=== PATIENT | female | born 1995 | race Caucasian/White ===

== ENCOUNTER 2018-11-05 08:27 | Day surgery (SDC) | payer BC ==
[~2018-11-05 08:27] MED LIST: Lactated Ringers 1,000 ML IV SCH; Sodium Chloride 0.9% 10 ML Syringe FLUSH PRN
[2018-11-05] MEDS ORDERED: Norflurane/HFc 245FA Medium Stream Spray 103.5 ML Can TOP PRN (08:31)
[2018-11-05] MEDS ORDERED: fentaNYL 100 MCG/2 ML SDV ONE ×2 (09:21→09:56)
[2018-11-05] MEDS ORDERED: Propofol 200 MG/20 ML SDV ONE ×3 (09:22→11:09)
[2018-11-05] MEDS ORDERED: Ondansetron 4 MG/2 ML SDV ONE (09:56)
--- NOTE | 2018-11-05 09:59 | PCM.HPR ---
H & P Addendum review - H & P Addendum Review Date of Original H & P: 11/02/18 Date Reviewed: 11/05/18 Time Reviewed: 09:50 Patient was Examined: No Changes
[2018-11-05] MEDS ORDERED: Methylene Blue 50 MG/10 ML Ampule INJECT ONE (10:15)
[2018-11-05] MEDS ORDERED: Bupivacaine 0.25%/EPINEPHrine 1:200,000 30 ML SDV INFILT ONE (10:15)
--- NOTE | 2018-11-05 10:56 | PCM.OPNOTE ---
- General Post-Op/Procedure Note Date of Surgery/Procedure: 11/05/18 Operative Procedure(s): Pilonidal Cystectomy Pre Op Diagnosis: Pinonidal Fistula Post-Op Diagnosis: Same Anesthesia Technique: Local, MAC Primary Surgeon: Abdirahman Olson Anesthesia Provider: Melinda Turpin Pathology: Pilonidal Skin EBL in mLs: 5 Complications: None Condition: Good
--- NOTE | 2018-11-06 08:50 | OR ---
Date of Procedure: 11/05/2018 PREOPERATIVE DIAGNOSIS: History of pilonidal abscess with pilonidal fistula. POSTOPERATIVE DIAGNOSIS: History of pilonidal abscess with pilonidal fistula. PROCEDURE: Pilonidal cystectomy. ANESTHESIA: Local with IV sedation. DESCRIPTION OF PROCEDURE: The patient was brought to the operating room where she was placed in the prone position and IV sedation administered. Buttocks were prepped with benzoin and retracted with tape. In the gluteal cleft, she has 3 openings. The largest is the most cephalad where she has had her recent abscess and ongoing drainage. She has 2 smaller skin openings. This extends for a total of 5 cm and all the openings are in the midline. A mixture of methylene blue and hydrogen peroxide were injected into each of these. Local anesthesia was administered circumferentially consisting of 0.25% Marcaine with epinephrine and 1% lidocaine. The skin was elliptically excised around the subcutaneous tissue. The lateral tracts did extend at least 1 cm laterally on each side. The tissue was removed down to the presacral fascia. Minimal oozing occurred that was controlled with electrocautery. The specimen was sent for pathology review. The wound was gently packed with moistened Kerlix roll and an ABD applied. The patient tolerated the procedure well. Estimated blood loss less than 5 mL. She returned to Postanesthesia in stable condition. KT ALVAREZ MD /[id number]
== END 2018-11-05 12:31 | disposition home or self-care (01) ==
LOC: LL.SDS 08:27
PROVIDERS: ATTEND Surgery
DX: L05.02 Pilonidal sinus with abscess (principal)
CPT/HCPCS: 11772; J2001; J2405; J2704; J3010; J7120

== ENCOUNTER 2018-12-12 09:00 | Emergency (ER) | payer BC ==
--- NOTE | 2018-12-12 09:46 | EDM.PDOC ---
ED HPI GENERAL MEDICAL PROBLEM - General Chief Complaint: ENT Problem Stated Complaint: swollen, red, throat Time Seen by Provider: 12/12/18 09:39 Source of Information: Reports: Patient History Limitations: Reports: No Limitations - History of Present Illness INITIAL COMMENTS - FREE TEXT/NARRATIVE: Patient comes to ER after developing sore throat. Noted white spots on tonsils. No fever. No nausea/emesis/bowel changes. Has runny nose and mild cough. No lymphadenopathy. Denies other symptoms. Exposed to strep several weeks ago. 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 ED EXAM, ENT - Physical Exam Exam: See Below Exam Limited By: No Limitations General Appearance: Alert, WD/WN, No Apparent Distress Eye Exam: Bilateral Eye: EOMI, PERRL Ears: Normal External Exam, Normal Canal, Hearing Grossly Normal, Normal TMs Nose: No: Nasal Deformity, Nasal Discharge, Nasal Swelling Mouth/Throat: Normal Lips, Normal Teeth, Other (single small spot of exudate noted right tonsil). No: Pharyngeal Erythema Head: Atraumatic, Normocephalic Neck: Normal Inspection, Supple, Non-Tender, Full Range of Motion. No: Lymphadenopathy (L), Lymphadenopathy (R) Respiratory/Chest: No Respiratory Distress, Lungs Clear, Normal Breath Sounds, No Accessory Muscle Use Cardiovascular: Regular Rate, Rhythm, No Edema, No Murmur GI/Abdominal: Soft (Female) Exam: Deferred Rectal (Female) Exam: Deferred Back: No: Muscle Spasm Extremities: Normal Capillary Refill Neurological: Alert, Oriented, Normal Cognition, Normal Gait Psychiatric: Normal Affect, Normal Mood Skin: Warm, Dry, Intact, Normal Color Course - Vital Signs Last Recorded V/S: Last Vital Signs Temp 36.6 C 12/12/18 09:00 Pulse 80 12/12/18 09:00 Resp 18 12/12/18 09:00 BP 131/80 12/12/18 09:00 Pulse Ox 100 12/12/18 09:00 - Orders/Labs/Meds Orders: Active Orders 24 hr Category Date Time Status CULTURE STREP A CONFIRMATION [RM] Stat Lab 12/12/18 09:11 Results STREP SCRN A RAPID W CULT CONF [RM] Stat Lab 12/12/18 09:11 Results - Re-Assessments/Exams Free Text/Narrative Re-Assessment/Exam: 12/12/18 09:50 Suspect viral URI. Rapid strep negative. Culture pending. Antibiotics not indicated at this time. Reassurance offered. Will contact patient if culture is positive. Departure - Departure Time of Disposition: 09:45 Disposition: Home, Self-Care 01 Condition: Good Clinical Impression: Pharyngitis - Discharge Information *PRESCRIPTION DRUG MONITORING PROGRAM REVIEWED*: Not Applicable *COPY OF PRESCRIPTION DRUG MONITORING REPORT IN PATIENT CULLEN: Not Applicable Instructions: Pharyngitis, [id number] Referrals: Lizbet Nunez NP [Primary Care Provider] - Forms: ED Department Discharge Additional Instructions: Follow up as needed. We will call you if the culture is positive! - My Orders Last 24 Hours: My Active Orders 12/12/18 09:11 CULTURE STREP A CONFIRMATION [RM] Stat STREP SCRN A RAPID W CULT CONF [RM] Stat - Assessment/Plan Last 24 Hours: My Active Orders 12/12/18 09:11 CULTURE STREP A CONFIRMATION [RM] Stat STREP SCRN A RAPID W CULT CONF [RM] Stat
== END 2018-12-12 09:50 | disposition home or self-care (01) ==
LOC: LL.ED 09:00
DX: J02.9 Acute pharyngitis, unspecified (principal)
CPT/HCPCS: 87081; 87430; 99283

== ENCOUNTER 2019-04-03 22:34 | Emergency (ER) | payer BC ==
--- NOTE | 2019-04-03 23:36 | EDM.PDOC ---
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 Stated Complaint: Cramping-19 weeks Time Seen by Provider: 04/03/19 22:40 Source of Information: Reports: Patient History Limitations: Reports: No Limitations - History of Present Illness INITIAL COMMENTS - FREE TEXT/NARRATIVE: Patient is a 23-year-old 3 para 2 who states that her daughter jumped on her belly earlier today and since that time she's had cramps but no other changes Onset: Sudden Duration: Hour(s):, Improving Location: Reports: Abdomen Quality: Reports: Ache Severity: Mild Improves with: Reports: Rest Worsens with: Reports: None Context: Reports: Trauma Lower Uterine Pain Score (Numeric/FACES): 5 - Related Data Allergies Allergy/AdvReac Type Severity Reaction Status Date / Time No Known Allergies Allergy Verified 04/03/19 22:35 Home Meds: Home Meds Iron 1 tab PO DAILY 04/03/19 [History] Pnv No.95/Ferrous Fum/Folic AC [ Caplet] 1 tab PO DAILY 04/03/19 [ History] Past Medical History Cardiovascular History: Reports: None Respiratory History: Reports: None 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, Musculoskeletal History: Reports: Fracture, Other (See Below) Other Musculoskeletal History: right humerous fracture,right radial ulnr nerve entrapment Psychiatric History: Reports: None - Past Surgical History HEENT Surgical History: Reports: Oral Surgery Other HEENT Surgeries/Procedures: wisdom teeth extraction Social & Family History - Tobacco Use Smoking Status *Q: Never Smoker - Caffeine Use Caffeine Use: Reports: None - Recreational Drug Use Recreational Drug Use: No ED ROS GENERAL - Review of Systems Review Of Systems: See Below Constitutional: Reports: No Symptoms HEENT: Reports: No Symptoms Respiratory: Reports: No Symptoms Cardiovascular: Reports: No Symptoms Endocrine: Reports: No Symptoms GI/Abdominal: Reports: No Symptoms : Reports: No Symptoms Musculoskeletal: Reports: No Symptoms Skin: Reports: No Symptoms Neurological: Reports: No Symptoms Psychiatric: Reports: No Symptoms Hematologic/Lymphatic: Reports: No Symptoms Immunologic: Reports: No Symptoms ED EXAM, GENERAL - Physical Exam Exam: See Below Exam Limited By: No Limitations General Appearance: Alert, WD/WN, No Apparent Distress Ears: Normal External Exam, Normal Canal, Hearing Grossly Normal, Normal TMs Nose: Normal Inspection, Normal Mucosa, No Blood Throat/Mouth: Normal Inspection, Normal Lips, Normal Teeth, Normal Gums, Normal Oropharynx, Normal Voice, No Airway Compromise Head: Atraumatic, Normocephalic Neck: Normal Inspection, Supple, Non-Tender, Full Range of Motion Respiratory/Chest: No Respiratory Distress, Lungs Clear, Normal Breath Sounds, No Accessory Muscle Use, Chest Non-Tender Cardiovascular: Normal Peripheral Pulses, Regular Rate, Rhythm, No Edema, No Gallop, No JVD, No Murmur, No Rub GI/Abdominal: Normal Bowel Sounds, Soft, Non-Tender, No Organomegaly, No Distention, No Abnormal Bruit, No Mass (Female) Exam: Other (Patient is 19 weeks her fundal height is above the umbilicus heart rate was checked with Doppler 150 patient was placed on the toco showed no uterine contraction after 10 minutes) Rectal (Female) Exam: Deferred Back Exam: Normal Inspection, Full Range of Motion, NT Extremities: Normal Inspection, Normal Range of Motion, Non-Tender, Normal Capillary Refill, No Pedal Edema Neurological: Alert, Oriented, CN II-XII Intact, Normal Cognition, Normal Gait, Normal Reflexes, No Motor/Sensory Deficits Course - Vital Signs Last Recorded V/S: Last Vital Signs Temp 97.9 F 04/03/19 22:55 Pulse 101 H 04/03/19 22:55 Resp 16 04/03/19 22:55 BP 136/86 04/03/19 22:55 Pulse Ox 100 04/03/19 22:55 Departure - Departure Time of Disposition: 23:35 Disposition: Home, Self-Care 01 Condition: Good Clinical Impression: Abdominal cramping - Discharge Information *PRESCRIPTION DRUG MONITORING PROGRAM REVIEWED*: No *COPY OF PRESCRIPTION DRUG MONITORING REPORT IN PATIENT CULLEN: No Referrals: Ja Womack MD [Primary Care Provider] - Forms: ED Department Discharge Care Plan Goals: Patient doing well will be sent home she is to drink water as tolerated
== END 2019-04-04 00:05 | disposition home or self-care (01) ==
LOC: LL.ED 22:34
DX: O99.89 Other specified diseases and conditions complicating pregnancy, childbirth and the puerperium (principal); R10.9 Unspecified abdominal pain; Z3A.19 19 weeks gestation of pregnancy
CPT/HCPCS: 99283

== ENCOUNTER 2020-03-08 02:47 | Emergency (ER) | payer BC ==
[2020-03-08] MEDS ORDERED: Ketorolac 10 MG Tab PO ONE (03:31)
[2020-03-08] MEDS ORDERED: traMADol 50 MG Tab PO ONE (03:31)
--- NOTE | 2020-03-08 03:36 | EDM.PDOC ---
ED HPI GENERAL MEDICAL PROBLEM - General Chief Complaint: Lower Extremity Injury/Pain Stated Complaint: left foot injury Time Seen by Provider: 03/08/20 03:11 Source of Information: Reports: Patient History Limitations: Reports: No Limitations - History of Present Illness INITIAL COMMENTS - FREE TEXT/NARRATIVE: Patient comes to ER with complaint of left foot pain just distal to lateral ankle after landing funny/almost falling on a stair at home. Tried to catch self and has some tightness/discomfort right elbow. History of having plate placed in humerus of right arm. No other complaints/injury reported. 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, Musculoskeletal History: Reports: Fracture, Other (See Below) Other Musculoskeletal History: right humerous fracture,right radial ulnr nerve entrapment Psychiatric History: Reports: None - Past Surgical History HEENT Surgical History: Reports: Oral Surgery Other HEENT Surgeries/Procedures: wisdom teeth extraction Musculoskeletal Surgical History: Reports: ORIF (right arm) Social & Family History - Tobacco Use Smoking Status *Q: Never Smoker - Caffeine Use Caffeine Use: Reports: Coffee, Soda - Recreational Drug Use Recreational Drug Use: No Review of Systems - Review of Systems Review Of Systems: See Below Constitutional: Reports: No Symptoms Eyes: Reports: No Symptoms Ears: Reports: No Symptoms Nose: Reports: No Symptoms Mouth/Throat: Reports: No Symptoms Respiratory: Reports: No Symptoms Cardiovascular: Reports: No Symptoms GI/Abdominal: Reports: No Symptoms Genitourinary: Reports: No Symptoms Musculoskeletal: Reports: Arm Pain, Foot Pain Skin: Reports: No Symptoms Neurological: Reports: No Symptoms Psychiatric: Reports: No Symptoms ED EXAM, GENERAL - Physical Exam Exam: See Below Exam Limited By: No Limitations General Appearance: Alert, WD/WN, Mild Distress, Obese Eye Exam: Bilateral Eye: EOMI, PERRL Ears: Hearing Grossly Normal Nose: No: Nasal Deformity, Nasal Swelling, Nasal Drainage Throat/Mouth: Normal Lips, Normal Voice, No Airway Compromise Head: Atraumatic, Normocephalic Neck: Supple Respiratory/Chest: No Respiratory Distress Extremities: Other (Exam of upper extremities shows good ROM in all joints, including sore right elbow. No focal tenderness with palpation. Able to move forearm/wrist/fingers well on affected side. NVI. Exam of affected left foot/ankle shows tenderness with palpation left top of foot/lateral foot with palpation. No deformity. No swelling or bruising. No crepitus. Ankle itself minimal discomfort with palpation laterally. NVI. ) Neurological: Alert, Oriented, Normal Cognition, Other (No gross deficits noted) Psychiatric: Normal Affect, Normal Mood Skin Exam: Warm, Dry, Ecchymosis (early bruise noted right forearm) Course - Vital Signs Last Recorded V/S: Last Vital Signs Temp 36.2 C 03/08/20 03:05 Pulse 96 03/08/20 03:05 Resp 12 03/08/20 03:05 BP 150/91 H 03/08/20 03:05 Pulse Ox 100 03/08/20 03:05 - Orders/Labs/Meds Orders: Active Orders 24 hr Category Date Time Status Elbow Min 3V Rt [CR] Stat Exams 03/08/20 02:54 Taken Foot Comp Min 3V Lt [CR] Stat Exams 03/08/20 02:54 Taken Meds: Medications Discontinued Medications Generic Name Dose Route Start Last Admin Trade Name Freq PRN Reason Stop Dose Admin Ketorolac Tromethamine 10 mg 03/08/20 03:31 Toradol PO 03/08/20 03:32 ONETIME ONE Tramadol HCl 50 mg 03/08/20 03:31 Ultram PO 03/08/20 03:32 ONETIME ONE - Re-Assessments/Exams Free Text/Narrative Re-Assessment/Exam: 03/08/20 03:42 Xray of right elbow and left foot taken. No obvious fracture noted. Possible area of change left lateral foot that may indicate small avulsion fracture from ligament injury. Pending Radiology review. Cannot rule out tendon or ligament injury for left foot. Crutches/no weight bearing for now. Will have staff contact patient with Radiology results. Precautions and follow up plans reviewed. No work tonight. Advance activity as tolerated if xray reading is negative. Follow up otherwise as needed. Departure - Departure Time of Disposition: 03:31 Disposition: Home, Self-Care 01 Condition: Good Clinical Impression: Injury of left foot Qualifiers: Encounter type: initial encounter Qualified Code(s): S99.922A - Unspecified injury of left foot, initial encounter - Discharge Information *PRESCRIPTION DRUG MONITORING PROGRAM REVIEWED*: Not Applicable *COPY OF PRESCRIPTION DRUG MONITORING REPORT IN PATIENT CULLEN: Not Applicable Instructions: Crutch Use, Adult, [id number] Referrals: PCP,None [Primary Care Provider] - Forms: ED Department Discharge, ED Return to Work/School Form Additional Instructions: Avoid putting weight on affected foot today/use the crutches. No work tonight. Ice foot 10 min every hour while awake to help with pain and swelling. As you know Radiology needs to review the xray and give formal opinion. Will have s taff call you with report once available. If no fracture confirmed, advance activity as tolerated starting tomorrow. OK to use Tylenol and/or Ibuprofen or Aleve for pain. If you do not see significant improvement of pain over the next week then you need to get rechecked. Sometimes you need to get another xray around 10 days after an incident to look for hard to see fractures. More advance imaging may be needed if problem continues and Xray does not find a break. Follow up with your primary provider as needed. Sepsis Event Note (ED) - Evaluation Sepsis Screening Result: No Definite Risk - Focused Exam Vital Signs: Vital Signs Temp Pulse Resp BP Pulse Ox 03/08/20 03:05 36.2 C 96 12 150/91 H 100 - My Orders Last 24 Hours: My Active Orders 03/08/20 02:54 Elbow Min 3V Rt [CR] Stat Foot Comp Min 3V Lt [CR] Stat - Assessment/Plan Last 24 Hours: My Active Orders 03/08/20 02:54 Elbow Min 3V Rt [CR] Stat Foot Comp Min 3V Lt [CR] Stat
== END 2020-03-08 03:47 | disposition home or self-care (01) ==
LOC: LL.ED 02:47
DX: S99.922A Unspecified injury of left foot, initial encounter (principal); S50.11XA Contusion of right forearm, initial encounter; E66.9 Obesity, unspecified; W10.9XXA Fall (on) (from) unspecified stairs and steps, initial encounter; Y92.009 Unspecified place in unspecified non-institutional (private) residence as the place of occurrence of the external cause
CPT/HCPCS: 73080-RT; 73630-LT; 99283-25; A9270-GY

== ENCOUNTER 2021-12-18 22:05 | Emergency (ER) | payer BC, MEDICAID | END 2021-12-18 23:10 | disposition home or self-care (01) | LOC: LL.ED 22:05 | DX: O16.3 Unspecified maternal hypertension, third trimester (principal); Z3A.35 35 weeks gestation of pregnancy; Z79.899 Other long term (current) drug therapy | CPT/HCPCS: 81001; 99283; 99284 ==

== ENCOUNTER 2022-04-14 22:38 | Emergency (ER) | payer BC, MEDICAID ==
[2022-04-14 23:30] LABS: ANION GAP 10.4 meq/L (7-15); CHLORIDE,CL 103 mmol/L (98-107); SODIUM,NA 141 mmol/L (136-145)
[2022-04-14 23:31] LABS: ESTIMATED GFR 121 mL/min (>=60)
== END 2022-04-14 23:40 | disposition home or self-care (01) ==
LOC: LL.ED 22:38
DX: O20.9 Hemorrhage in early pregnancy, unspecified (principal); Z3A.15 15 weeks gestation of pregnancy; Z79.899 Other long term (current) drug therapy
CPT/HCPCS: 36415; 80048; 85025; 99284

== ENCOUNTER 2023-05-03 10:42 | Emergency (ER) | payer MEDICAID ==
[2023-05-03] MEDS: Take Home: Amoxicillin 875 MG Tab, 6 Tab Pack PO ONE (11:20)
== END 2023-05-03 11:35 | disposition home or self-care (01) ==
LOC: LL.ED 10:42
DX: J02.0 Streptococcal pharyngitis (principal); I10 Essential (primary) hypertension; Z88.5 Allergy status to narcotic agent
CPT/HCPCS: 87430; 99283; A9270-GY

== ENCOUNTER 2023-10-23 23:12 | Emergency (ER) | payer MEDICAID ==
[2023-10-23] MEDS: Take Home: Cyclobenzaprine 10 MG Tab, 4 Tab Pack PO ONE (23:46)
== END 2023-10-23 23:56 | disposition home or self-care (01) ==
LOC: LL.ED 23:12
DX: M62.830 Muscle spasm of back (principal); I10 Essential (primary) hypertension; Z88.6 Allergy status to analgesic agent; Z79.899 Other long term (current) drug therapy
CPT/HCPCS: 99283; A9270-GY

== ENCOUNTER 2024-09-04 11:30 | Emergency (ER) | payer MEDICAID, OTHER ==
[2024-09-04] MEDS: Erythromycin Base 0.5% Ophth Oint 3.5 GM Tube EYELF ONE (13:47)
[2024-09-04] MEDS: Tetracaine HCl/PF 0.5% 4 ML Bottle EYELF ONE (13:48)
[2024-09-04] MEDS: Tetracaine HCl/PF 0.5% 4 ML Bottle ONE (13:48)
== END 2024-09-04 13:50 | disposition home or self-care (01) ==
LOC: LL.ED 11:30
DX: H10.32 Unspecified acute conjunctivitis, left eye (principal); I10 Essential (primary) hypertension; Z88.8 Allergy status to other drugs, medicaments and biological substances; Z79.899 Other long term (current) drug therapy
CPT/HCPCS: 99283; A9270-GY; J3490